=== PATIENT | female | born 1975 | race Caucasian/White ===

== ENCOUNTER 2018-02-04 01:41 | Emergency (ER) | payer SELFPAY ==
[~2018-02-04] VITALS: Ht 170.2 cm; Wt 52.0 kg
[2018-02-04 01:43] VITALS: BP 175/91; PULSE 111; RESP 20; TEMP 98.6; O2SAT 99
--- NOTE | 2018-02-04 02:13 | PD ---
HPI Chief Complaint: OD/ Ingestion Time Seen by Provider: 01:52 Travel History International Travel<30 days: No Contact w/Intl Traveler<30days: No Traveled to known affect area: No History of Present Illness HPI 42-year-old white female presents emergency department requesting a drug test. She feels that she may have been given a drug last evening around 4:30 in the afternoon when she was out at a bar drinking. She states that she had 2 cocktails and then became very intoxicated and was noted to be acting bizarre for several hours afterwards. The patient is concerned that she may have been slipped something in her drink and would like to be tested tonight. Patient states that she is back to her normal self today. She is not having any symptoms currently. She denies any fever chills. No chest pain or shortness of breath. No altered sensorium now. She does not report any sexual assault. She has not reported this to the police. History Past Medical Histgory Narrative Medical History of substance abuse Tetanus Vaccination: < 5 Years Past Surgical History Surgical History: No Previous Surgery Social History Alcohol Use: Yes Tobacco Use: Yes Allergies-Medications (Allergen,Severity, Reaction): Coded Allergies: No Known Allergies (Unverified , 02/04/18) Review of Systems General / Constitutional: No: Fever Eyes: No: Visual changes HENT: No: Headaches Cardiovascular: No: Chest Pain or Discomfort Respiratory: No: Shortness of Breath Gastrointestinal: No: Abdominal Pain Genitourinary: No: Dysuria Musculoskeletal: No: Pain Skin: No Rash Neurologic: No: Weakness Psychiatric: No: Depression Endocrine: No: Polydipsia Hematologic/Lymphatic: No: Easy Bruising Physical Exam Narrative GENERAL: Well-developed, well-nourished in no acute distress. Nontoxic appearing. HEAD: Normocephalic, atraumatic. EYES: Pupils equal round and reactive. Extraocular motions intact. No scleral icterus. No injection or drainage. ENT: TMs clear without erythema. The external auditory canals clear. Nose: clear . Posterior pharynx is pink and moist. No tonsillar edema or exudate. Uvula midline. Airway patent. NECK: Trachea midline.Supple, nontender, moves head freely. No central bony tenderness or spasm. CARDIOVASCULAR: Regular rate and rhythm without murmurs, gallops, or rubs. RESPIRATORY: Clear to auscultation. Breath sounds equal bilaterally. No wheezes , rales, or rhonchi. GASTROINTESTINAL: Abdomen soft, non-tender, nondistended. No hepato-splenomegaly , or palpable masses. No guarding. EXTREMITIES: No clubbing, cyanosis, or edema. No joint tenderness, effusion, or edema noted. BACK: Nontender without deformity or crepitance. No flank tenderness. Data Data Last Documented VS Vital Signs Date Time Temp Pulse Resp B/P (MAP) Pulse Ox O2 Delivery O2 Flow Rate FiO2 02/04/18 01:43 98.6 111 20 175/91 (119) 99 MDM Medical Screen Exam Complete: Yes Emergency Medical Condition: No Differential Diagnosis Intentional drug ingestion, unintentional drug ingestion, psychosis NOS Narrative Course A medical screening exam was performed: At the time of evaluation the presenting medical condition was determined not to be of an emergent nature. The patient was given the option of receiving additional care, but declined. Patient was given options for additional community resources from which to obtain care. The Patient Has Been advised to seek medical attention for their presenting complaint. The patient has been advised to return to the ER at any time if an emergent condition develops. Primary Impression: Encounter for medical screening examination Condition: Matthew Dorantes February 04, 2018 02:13
== END 2018-02-04 02:43 | disposition left against medical advice (07) ==
LOC: NEPD 01:41
DX: Z04.8 Encounter for examination and observation for other specified reasons (principal)
CPT/HCPCS: 99281